=== PATIENT | male | born 1950 | race Caucasian/White ===

== ENCOUNTER 2018-07-11 08:17 | Emergency (ER) | payer OTHER ==
[2018-07-11] MEDS ORDERED: DIAZEPAM 10 MG/2 ML INJ SYRINGE ONE (08:36)
[2018-07-11] MEDS ORDERED: FENTANYL CITR 100 MCG/2 ML ONE (08:37)
[2018-07-11] MEDS ORDERED: MEPERIDINE HCL 50 MG/ML AMP ONE (08:49)
--- NOTE | 2018-07-11 08:52 | EDPHYS ---
Physician Documentation [facility] Name: Will Escobedo Age: 67 yrs Sex: Male : 1950 Arrival Date: 07/11/2018 Time: 08:17 Bed 17 Private MD: ED Physician Ronny Denton HPI: 07/11 08:44 This 67 yrs old Male presents to ER via EMS with complaints of Back Pain. rn 08:44 The patient presents with pain that is chronic. The symptoms are located in the. Onset: rn The symptoms/episode began/occurred at an unknown time. The pain does not radiate. Associated signs and symptoms: Pertinent negatives: abdominal pain, chest pain, dysuria, fever, hematuria, incontinence, nausea, numbness, tingling, urinary retention, vomiting, weakness. Modifying factors: The patient symptoms are alleviated by the patient symptoms are aggravated by any movement. Severity of symptoms: At their worst the symptoms were moderate, in the emergency department the symptoms have improved. The patient has experienced similar episodes in the past, chronically. Reports chronic back pain for about a decade, doesn't recall what started it all, no new trauma or symptoms, has pain pump, is not out of meds, takes norco, reports has good days and bad days, felt ok yesterday, seen [facility]. No bowel/bladder problems, no injury. No fall. Woke up today and feels like needs more pain medication. . Historical: - Allergies: 08:24 NKDA; sg - Home Meds: 08:24 Hydrocodone-Acetaminophen Oral [Active]; Pain Pump [Active]; sg - PMHx: 08:24 Chronic pain; Diabetes - NIDDM; Hypertension; sg - Immunization history:: Adult Immunizations unknown. - Social history:: Smoking status: unknown. - Ebola Screening: : Patient negative for fever greater than or equal to 101.5 degrees Fahrenheit, and additional compatible Ebola Virus Disease symptoms Patient denies exposure to infectious person Patient denies travel to an Ebola-affected area in the 21 days before illness onset No symptoms or risks identified at this time. - Family history:: not pertinent. - Hospitalizations: : No recent hospitalization is reported. ROS: 08:44 Constitutional: Negative for fever, chills, and weight loss, Eyes: Negative for injury, rn pain, redness, and discharge, Neck: Negative for injury, pain, and swelling, Cardiovascular: Negative for chest pain, palpitations, and edema, Respiratory: Negative for shortness of breath, cough, wheezing, and pleuritic chest pain, Abdomen/GI: Negative for abdominal pain, nausea, vomiting, diarrhea, and constipation, Back: Negative for injury MS/Extremity: Negative for injury and deformity, Skin: Negative for injury, rash, and discoloration, Neuro: Negative for headache, weakness, numbness, tingling, and seizure. Exam: 08:44 Constitutional: This is a well developed, well nourished patient who is awake, alert, rn and in no acute distress. Laying on his side on personal pillow he brought. Head/Face: Normocephalic, atraumatic. Neck: Trachea midline, no thyromegaly or masses palpated, and no cervical lymphadenopathy. Supple, full range of motion without nuchal rigidity, or vertebral point tenderness. No Meningismus. Abdomen/GI: soft, non-tender Back: No spinal tenderness. No skin changes, no evidence of trauma, no lesions. Skin: Warm, dry, no evidence of cellulitis. MS/ Extremity: Pulses equal, no cyanosis. Neurovascular intact. Full, normal range of motion. Equal circumference. Neuro: Awake and alert, GCS 15, oriented to person, place, time, and situation. Cranial nerves II-XII grossly intact. Motor strength 5/5 in all extremities. Sensory grossly intact. Vital Signs: 08:22 Resp 16; Temp 97.7; Weight 115.67 kg (R); Pain 10/10; sg 08:25 BP 167 / 79; sg 08:25 Pulse 68; sg MDM: 08:19 Patient medically screened. rn 08:44 Differential diagnosis: arthritis, chronic back pain, Fatigue Osteoarthritis muscle rn spasm. Data reviewed: vital signs, nurses notes, and as a result, I will discharge patient. Counseling: I had a detailed discussion with the patient and/or guardian regarding: the historical points, exam findings, and any diagnostic results supporting the discharge/admit diagnosis, the need for outpatient follow up, to return to the emergency department if symptoms worsen or persist or if there are any questions or concerns that arise at home. Special discussion: I discussed with the patient/guardian in detail that at this point there is no indication for admission to the hospital. It is understood, however, that if the symptoms persist or worsen the patient needs to return immediately for re-evaluation. ED course: SPoke at length with patient, no new trauma or symptoms, patient reports just wants pain medication and to go home. States has tried to get myelogram or MRI before and cannot lay down for that long, patient declines xrays that I offered him, after getting medication, patient insists on leaving and doesn't want anything else done.. Administered Medications: 08:47 Drug: Demerol 50 mg Route: IM; Site: left gluteus; iw 08:47 Drug: Valium 2 mg Route: IM; Site: left gluteus; iw Disposition: 07/11/18 08:51 Discharged to Home. Impression: Chronic Back Pain, Muscle spasm of back. - Condition is Stable. - Discharge Instructions: Muscle Cramps and Spasms, Back Exercises, [id number]. - Medication Reconciliation Form, Thank You Letter, Antibiotic Education, Prescription Opioid Use form. - Follow up: Private Physician; When: As needed; Reason: Recheck today's complaints, Re-evaluation by your physician. - Problem is chronic. - Symptoms have improved. Signatures: Milton Dunlap RN RN sg Mayte Norris RN RN iw Ronny Denton MD MD e learning developer: (The following items were deleted from the chart) 09:03 08:51 07/11/2018 08:51 Discharged to Home. Impression: Chronic Back Pain; Muscle spasm iw of back. Condition is Stable. Forms are Medication Reconciliation Form, Thank You Letter, Antibiotic Education, Prescription Opioid Use. Follow up: Private Physician; When: As needed; Reason: Recheck today's complaints, Re-evaluation by your physician. Problem is chronic. Symptoms have improved. rn
--- NOTE | 2018-07-11 08:52 | ER ---
Nurse's Notes [facility] Name: Will Escobedo Age: 67 yrs Sex: Male : 1950 Arrival Date: 07/11/2018 Time: 08:17 Bed 17 Private MD: Diagnosis: Chronic Back Pain;Muscle spasm of back Presentation: 07/11 08:18 Presenting complaint: EMS states: pt reports having chronic left shoulder, left back, sg and left hip pain for 7 years to 8 years, currently being treated by pain management doctors, pt reports having prescriptions for hydrocodone, and having a working pain pump, pt states no change in pain this morning reports is a 10/10 so pt called for assistance. Transition of care: patient was not received from another setting of care. Onset of symptoms was July 11, 2018. Risk Assessment: Do you want to hurt yourself or someone else? Patient reports no desire to harm self or others. Other: reports has in the passed had thoughts of suicide but no thoughts or planning at this time. Initial Sepsis Screen: Does the patient meet any 2 criteria? No. Patient's initial sepsis screen is negative. Does the patient have a suspected source of infection? No. Patient's initial sepsis screen is negative. Care prior to arrival: Medication(s) given: Normal saline infusion, 500 mL, fentanyl 100 mcg IVP IV initiated. 20 GA, in the left hand, Glucose check: 222. 08:18 Method Of Arrival: EMS: [facility] 08:18 Acuity: MARS 3 sg Historical: - Allergies: 08:24 NKDA; sg - Home Meds: 08:24 Hydrocodone-Acetaminophen Oral [Active]; Pain Pump [Active]; sg - PMHx: 08:24 Chronic pain; Diabetes - NIDDM; Hypertension; sg - Immunization history:: Adult Immunizations unknown. - Social history:: Smoking status: unknown. - Ebola Screening: : Patient negative for fever greater than or equal to 101.5 degrees Fahrenheit, and additional compatible Ebola Virus Disease symptoms Patient denies exposure to infectious person Patient denies travel to an Ebola-affected area in the 21 days before illness onset No symptoms or risks identified at this time. - Family history:: not pertinent. - Hospitalizations: : No recent hospitalization is reported. Screenin:30 Abuse screen: Denies threats or abuse. Denies injuries from another. Nutritional sg screening: No deficits noted. Tuberculosis screening: No symptoms or risk factors identified. Never had TB. Fall Risk None identified. No fall in past 12 months (0 pts). Assessment: 08:30 General: Appears in no apparent distress. well groomed, well developed, well nourished, sg Behavior is calm, cooperative, appropriate for age. Pain: Complains of pain in left scapular area, left subscapular area and left mid back Quality of pain is described as aching. Neuro: Level of Consciousness is awake, alert, obeys commands, Oriented to person, place, time, situation, Branch Customer Service Representative are equal bilaterally Moves all extremities. Full function Gait is steady, Speech is normal, Facial symmetry appears normal. Cardiovascular: Patient's skin is warm and dry. Chest pain is denied. Respiratory: Airway is patent Respiratory effort is even, unlabored, Respiratory pattern is regular, symmetrical. GI: No signs and/or symptoms were reported involving the gastrointestinal system. : No deficits noted. EENT: No deficits noted. Derm: Skin is pink, warm \T\ dry. Musculoskeletal: Circulation, motion, and sensation intact. Range of motion: intact in all extremities, Swelling absent pt ambulatory to ER stretcher from EMS stretcher, no issues encountered. Vital Signs: 08:22 Resp 16; Temp 97.7; Weight 115.67 kg (R); Pain 10/10; sg 08:25 BP 167 / 79; sg 08:25 Pulse 68; sg ED Course: 08:17 Patient arrived in ED. sg 08:18 Arm band placed on. sg 08:19 Ronny Denton MD is Attending Physician. rn 08:22 Triage completed. sg 08:26 Milton Dnulap, MAYKEL is Primary Nurse. sg 08:30 Patient has correct armband on for positive identification. Bed in low position. Call sg light in reach. Side rails up X2. Pulse ox on. NIBP on. Warm blanket given. Head of bed elevated. 09:00 No provider procedures requiring assistance completed. IV discontinued, intact, sg bleeding controlled, No redness/swelling at site. Pressure dressing applied. Administered Medications: 08:47 Drug: Demerol 50 mg Route: IM; Site: left gluteus; iw 08:47 Drug: Valium 2 mg Route: IM; Site: left gluteus; iw Outcome: 08:51 Discharge ordered by . rn 09:00 Discharged to home via wheelchair, with family. sg 09:00 Condition: good 09:00 Discharge instructions given to patient, family, pt Instructed on discharge instructions, follow up and referral plans. safety practices, Demonstrated understanding of instructions, follow-up care. 09:03 Patient left the ED. Signatures: Milton Dunlap RN RN sg Williams, Irene, RN RN Ronny Denton MD MD rn
== END 2018-07-11 09:03 | disposition home or self-care (01) ==
LOC: ER 08:17
DX: M62.830 Muscle spasm of back (principal); G89.4 Chronic pain syndrome
CPT/HCPCS: 96372; 99284; J2175; J3010; J3360